=== PATIENT | female | born 1970 | race Caucasian/White ===

== ENCOUNTER 2021-10-23 00:11 | Emergency (ER) | payer OTHER, BC ==
[2021-10-23 00:25] VITALS: BP 149/79; PULSE 75
== END 2021-10-23 02:38 | disposition home or self-care (01) ==
LOC: FB.ED 00:11
DX: T75.4XXA Electrocution, initial encounter (principal); Z88.0 Allergy status to penicillin; Z88.5 Allergy status to narcotic agent; W86.8XXA Exposure to other electric current, initial encounter
CPT/HCPCS: 36415; 80053; 82550; 83735; 84484; 85025; 93005; 99283-25